=== PATIENT | male | born 1980 | race Caucasian/White ===

== ENCOUNTER 2021-07-17 16:52 | Emergency (ER) | payer MEDICAID ==
[2021-07-17] MEDS ORDERED: HYDROmorphone 1 MG/ML CARPUJECT IM STA (17:46)
--- NOTE | 2021-07-17 17:49 | ED Physician Documentation ---
History of Present Illness - Stated complaint Stated Complaint: RT RIB PX/GLF - Chief complaint Chief Complaint: Trauma Ch/Bk - Additonal information Additional information: 41-year-old male presents emergency department for evaluation of acute right lateral chest wall/rib pain. He tripped over a fence post 2 days ago landing hard on the ground on his right side. No loss of consciousness. Not anticoagulated. Since then he has had persistent pain lateral side of his chest and difficulty taking a deep breath. No fevers or hemoptysis. No history of similar injury in the past. Review of Systems Constitutional: denies: Fever, Chills Nose: reports: Reviewed and negative Throat: reports: Reviewed and negative Cardiac: reports: Other (chest wall pain) Respiratory: reports: Reviewed and negative GI: reports: Reviewed and negative : reports: Reviewed and negative Skin: reports: Reviewed and negative PD PAST MEDICAL HISTORY - Present Medications Home Medications: Ambulatory Orders Medication Instructions Recorded Confirmed HYDROcod/ACETAM 5/325 [[place] 5/325] 1 tablet PO BID PRN #10 tablet 07/17/21 Ibuprofen [Motrin] 600 mg PO Q6H PRN #30 tab 07/17/21 - Allergies Allergies/Adverse Reactions: Allergies Allergy/AdvReac Type Severity Reaction Status Date / Time No Known Drug Allergies Allergy Verified 07/17/21 17:36 PD ED PE NORMAL - General General: Alert and oriented X 3, No acute distress, Well developed/nourished - HEENT HEENT: EOMI, Moist mucous membranes, Pharynx benign - Neck Neck: Supple, no meningeal sign, Thyroid normal - Cardiac Cardiac: No murmur, No gallop - Respiratory Respiratory: No respiratory distress, Clear bilaterally, Other (Tenderness right lateral lower rib wall without crepitus or ecchymosis.) - Abdomen Abdomen: Normal bowel sounds, Non tender, Non distended - Back Back: No CVA TTP, No spinal TTP - Derm Derm: Normal color, Warm and dry - Extremities Extremities: No deformity, No tenderness to palpate - Neuro Neuro: Alert and oriented X 3, director music 2-12 intact Eye Opening: Spontaneous Motor: Obeys Commands Verbal: Oriented GCS Score: 15 Results - Vitals Vitals: Vital Signs - 24 hr 07/17/21 07/17/21 17:37 17:39 Temperature 36.6 C 36.2 C L Heart Rate 110 H 93 Respiratory 20 17 Rate Blood Pressure 152/104 H 125/86 H O2 Saturation 99 96 Oxygen O2 Source Room air - Rads (name of study) Rigbs with chest right Radiology: Final report received (No acute fractures cardiopulmonary process) PD MEDICAL DECISION MAKING - ED course Complexity details: reviewed results, re-evaluated patient, considered differential, d/w patient ED course: 41-year-old male presents emergency department for evaluation of acute right lower lateral rib wall pain after ground-level fall 2 days ago. No loss of consciousness. No anticoagulation. Chest pain is reproducible though there is no ecchymosis or crepitus. Rib series on the right side with PA the chest did not reveal any obvious fractures or pneumothorax. Pain was improved here with Dilaudid in the ER. Will be prescribed for hydrocodone on a limited basis at home with recommendation to continue Tylenol and Motrin. Otherwise emergent return precautions discussed. I am prescribing a short course of short-acting opioid pain medication for this patient. I have reviewed the patients CLINIC PHYSICIAN and no concerning findings were noted. I have discussed that the opioids are for short term therapy only, and will not be refilled from the ED. Departure - Departure Disposition: Home, Self Care Clinical Impression: Contusion, chest wall Qualifiers: Encounter type: initial encounter Laterality: right Qualified Code(s): S20.211A - Contusion of right front wall of thorax, initial encounter Condition: Stable Record reviewed to determine appropriate education?: Yes Instructions: ED Contusion Chest Wall Ch Prescriptions: Ibuprofen [Motrin] 600 mg PO Q6H PRN #30 tab PRN Reason: Pain HYDROcod/ACETAM 5/325 [[place] 5/325] 1 tablet PO BID PRN #10 tablet PRN Reason: Pain Comments: Keanu welch are seen today in the emergency department for pain on the right lower side of your rib wall after a ground-level fall 2 days ago. The x-ray series of your chest and ribs does not show any obvious fractures. You most likely have pain simply from contusion or bruising of the rib wall and muscles. In general I want you to gently stretch your chest wall. Make sure you take slow deep breaths and cough forcefully 4-6 times a day. Take Tylenol or ibuprofen with food as prescribed for pain. For severe pain you can take the hydrocodone that I have sent to the [facility] in [place]. If you develop worsening symptoms, have fevers or hemoptysis then please return immediately to the ER for a second look.
--- NOTE | 2021-07-17 18:29 | XRAY Report ---
PROCEDURE: Ribs w/PA Chest RT INDICATIONS: glf; rib pain TECHNIQUE: 2 views of the left ribs were acquired, along with a single view chest. COMPARISON: None FINDINGS: Surgical changes and devices: None. Bones and chest wall: No fractures or dislocations. No suspicious bony lesions. Overlying soft tis sues appear unremarkable. Lungs and pleura: No pleural effusions or pneumothorax. Lungs appear clear. Mediastinum: Mediastinal contours appear normal. Heart size is normal. IMPRESSION: No evidence of displaced left rib fracture. No evidence of acute pulmonary process. Reviewed by: Percy Jones MD on 07/17/2021 6:27 PM PDT Approved by: Percy Jones MD on 07/17/2021 6:27 PM PDT Station ID: [id number]
[2021-07-17 19:09] VITALS: BP 102/91
== END 2021-07-17 19:07 | disposition home or self-care (01) ==
LOC: ED 16:52
DX: S20.211A Contusion of right front wall of thorax, initial encounter (principal); W01.0XXA Fall on same level from slipping, tripping and stumbling without subsequent striking against object, initial encounter
CPT/HCPCS: 71101; 96372; 99283; J1170